=== PATIENT | male | born 1965 | race American Indian/Alaskan Native ===

== ENCOUNTER 2022-08-12 16:05 | Emergency (ER) | payer SELFPAY ==
[2022-08-12 16:52] LABS: Basophils # (Auto) 0.1 K/mm3 (0.0-0.1); Basophils % (Auto) 0.8 % (0.0-1.8); Eosinophils % (Auto) 0.4 % (0.0-4.3); Hematocrit 45.5 % (35.5-45.6); Hemoglobin 15.9 gm/dl (11.8-15.2); Lymphocytes # (Auto) 1.8 K/mm3 (1.2-5.4); Lymphocytes % (Auto) 26.8 % (13.4-35.0); Mean Corpuscular HGB Conc 35 % (32-34); Mean Corpuscular Volume 93 fl (84-94); Monocytes # (Auto) 0.5 K/mm3 (0.0-0.8); Monocytes % (Auto) 7.1 % (0.0-7.3); Platelet Count 146 K/mm3 (140-440); Red Blood Count 4.91 M/mm3 (3.65-5.03); Red Cell Distribution Width 12.9 % (13.2-15.2)
[2022-08-12 17:16] LABS: Albumin 4.5 g/dL (3.9-5); Calcium 9.9 mg/dL (8.4-10.2)
[2022-08-13] MEDS ORDERED: SODIUM CHLORIDE 0.9% 1000 ML 1,000 ML IV ONE (01:50)
[2022-08-13] MEDS ORDERED: INSULIN REGULAR, HUMAN 100 UNITS/1 ML IV ONE (01:50)
[2022-08-13 02:42] LABS: Bilirubin,Urine NEG (Negative); Blood,Urine NEG (Negative); Color,Urine Yellow (Yellow); Mucus,Urine FEW /HPF; Protein,Urine <15 mg/dL mg/dL (Negative); Urobilinogen,Urine < 2 mg/dL (<2.0)
[2022-08-13 04:01] VITALS: BP 133/86
--- NOTE | 2022-08-13 04:22 | Emergency Department Report ---
ED General Adult HPI - General Chief complaint: Hyperglycemia Stated complaint: BLOOD SUGAR HIGH /FATIGUE/BLURRY VISION Time Seen by Provider: 08/13/22 01:50 Source: patient Mode of arrival: Ambulatory Limitations: No Limitations - History of Present Illness Initial comments: Patient is a 57-year-old male history of diabetes presenting the ED with compl aint of fatigue, elevated blood sugar and blurred vision. States he takes oral diabetic medications and is not on insulin. Severity scale (0 -10): 0 - Related Data Allergies Allergy/AdvReac Type Severity Reaction Status Date / Time No Known Allergies Allergy Unverified 08/12/22 16:23 ED Review of Systems ROS: Stated complaint: BLOOD SUGAR HIGH /FATIGUE/BLURRY VISION Other details as noted in HPI Constitutional: other (Fatigue). denies: chills, fever Eyes: vision change Respiratory: denies: cough, shortness of breath, wheezing Cardiovascular: denies: chest pain, palpitations Gastrointestinal: denies: abdominal pain, nausea, diarrhea Genitourinary: denies: urgency, dysuria Musculoskeletal: denies: back pain, joint swelling, arthralgia Skin: denies: rash, lesions Neurological: denies: headache, weakness, paresthesias Psychiatric: denies: anxiety, depression ED Past Medical Hx - Past Medical History Previous Medical History?: Yes Hx Diabetes: Yes - Surgical History Past Surgical History?: Yes Additional Surgical History: Right ankle ED Physical Exam - General Limitations: No Limitations General appearance: alert, in no apparent distress - Head Head exam: Present: atraumatic, normocephalic - Respiratory Respiratory exam: Present: normal lung sounds bilaterally. Absent: respiratory distress - Cardiovascular Cardiovascular Exam: Present: regular rate, normal rhythm, normal heart sounds - GI/Abdominal GI/Abdominal exam: Present: soft. Absent: distended, tenderness - Rectal Rectal exam: Present: deferred - Neurological Exam Neurological exam: Present: alert, oriented X3 - Psychiatric Psychiatric exam: Present: normal affect, normal mood - Skin Skin exam: Present: warm, dry, intact, normal color ED Course Vital Signs 08/12/22 08/13/22 08/13/22 16:28 02:07 02:10 Temperature 98.5 F 98 F Pulse Rate 97 H 67 65 Respiratory 20 15 15 Rate Blood Pressure Blood Pressure 166/107 152/93 [Right] O2 Sat by Pulse 96 100 100 Oximetry 08/13/22 08/13/22 08/13/22 02:13 02:30 03:00 Temperature Pulse Rate 78 89 Respiratory 18 26 H Rate Blood Pressure 156/102 138/94 Blood Pressure [Right] O2 Sat by Pulse 100 98 99 Oximetry 08/13/22 08/13/22 03:30 04:00 Temperature Pulse Rate 80 77 Respiratory 19 18 Rate Blood Pressure 137/98 133/86 Blood Pressure [Right] O2 Sat by Pulse 98 98 Oximetry ED Medical Decision Making - Lab Data Result diagrams: 08/12/22 16:35 08/12/22 16:35 - Medical Decision Making Serum glucose 394. Patient given 1 L saline bolus along with 5 units of IV insulin resulting in Accu-Chek of 235. On reassessment patient states he feels much better. Stable for discharge home with return precautions. Critical care attestation.: If time is entered above; I have spent that time in minutes in the direct care of this critically ill patient, excluding procedure time. ED Disposition Clinical Impression: Hyperglycemia due to type 2 diabetes mellitus Disposition: 01 HOME / SELF CARE / HOMELESS Is pt being admited?: No Condition: Stable Instructions: Diabetes Mellitus Type 2 in Adults (ED), Type 2 Diabetes Eloina litus, Self Care, Adult, [id number], Blood Glucose Monitoring, Adult Additional Instructions: Please follow-up with your regular doctor as needed. You may return if your s ymptoms worsen. Time of Disposition: 04:22
== END 2022-08-13 04:33 | disposition home or self-care (01) ==
LOC: ED 16:05
DX: E11.65 Type 2 diabetes mellitus with hyperglycemia (principal)
CPT/HCPCS: 36415; 80053; 81001; 82140; 82805; 82962; 85025; 96361; 96374; 99283; Q9967; J1815